=== PATIENT | male | born 1970 ===

== ENCOUNTER 2018-07-09 20:58 | Inpatient (IN) | payer MEDICARE, MEDICAID ==
--- NOTE | 2018-07-09 22:17 | C.PDOC ---
History Of Present Illness 47 y/o male with a PMHx of opioid abuse and left hip replacement, presents to the ED with withdrawal and requesting detox. Patient reports he is only withdrawing from opiates. Denies other substance abuse. He also states he has been hurting himself and hearing voices. Patient threw himself down the stairs today because he was having withdrawal. He now complains of right knee and right hip pain. Denies head trauma. Denies blood thinner use. Otherwise denies any nausea, vomiting, abdominal pain, tremors, or other associated symptoms. Time Seen by Provider: 07/09/18 22:17 Chief Complaint (Nursing): Substance Abuse History Per: Patient History/Exam Limitations: no limitations Onset/Duration Of Symptoms: Hrs Current Symptoms Are (Timing): Still Present Suicide/Self Injury Attempted (Context): Other (Threw self down stairs) Modifying Factor(s): Other (Heroin) Associated Symptoms: Depression, Suicidal Thoughts Past Medical History Reviewed: Historical Data, Nursing Documentation, Vital Signs Vital Signs: Last Vital Signs Temp 98.5 F 07/10/18 01:02 Pulse 76 07/10/18 01:02 Resp 18 07/10/18 01:02 BP 122/69 07/10/18 01:02 Pulse Ox 98 07/10/18 01:02 - Medical History PMH: Asthma, Bipolar Disorder, Bronchitis, CHF, COPD, Depression, Emphysema, Schizophrenia Other Surgeries: Left hip replacement Family History: States: No Known Family Hx - Social History Hx Tobacco Use: Yes Hx Alcohol Use: Yes Hx Substance Use: Yes - Immunization History Hx Tetanus Toxoid Vaccination: No Hx Influenza Vaccination: No Hx Pneumococcal Vaccination: No Review Of Systems Eyes: Negative for: Vision Change Cardiovascular: Negative for: Chest Pain, Palpitations Respiratory: Negative for: Shortness of Breath Gastrointestinal: Negative for: Nausea, Vomiting, Abdominal Pain Musculoskeletal: Positive for: Leg Pain (right hip and right knee). Negative for: Other (tremor) Neurological: Negative for: Weakness, Numbness, Dizziness Psych: Positive for: Depression, Suicidal ideation, Withdrawal (from heroin) Physical Exam - Physical Exam Appears: Non-toxic, No Acute Distress Skin: Normal Color, Warm, Dry Head: Atraumatic, Normacephalic Eye(s): bilateral: Normal Inspection, PERRL, EOMI Neck: Normal ROM Chest: Symmetrical Cardiovascular: Rhythm Regular, No Murmur Respiratory: Normal Breath Sounds, No Rales, No Rhonchi, No Wheezing Gastrointestinal/Abdominal: Soft, No Tenderness, No Distention Back: Normal Inspection, No Vertebral Tenderness, No Paraspinal Tenderness Extremity: Normal ROM, Tenderness (mild tenderness to right hip on palpation, non-tender right knee), Capillary Refill (less than 2 sec), No Deformity, Other (Good neurovascular status to distal lower extremities) Extremity: Left: Atraumatic, Right: Atraumatic Pulses: Left Dorsalis Pedis: Normal, Right Dorsalis Pedis: Normal Neurological/Psych: Oriented x3, Normal Speech ED Course And Treatment - Laboratory Results Result Diagrams: 07/09/18 23:02 07/09/18 23:02 O2 Sat by Pulse Oximetry: 99 (room air) Pulse Ox Interpretation: Normal - Other Rad x-ray right hip X-Ray: Interpreted by Me, Viewed By Me Interpretation: No acute fracture or dislocation x-ray right knee X-Ray: Interpreted by Me, Viewed By Me Interpretation: No acute fracture or dislocation Medical Decision Making Medical Decision Making: Impression: 47 y/o male with right hip pain, right knee pain, opioid withdrawal , and suicidal ideation. Pt notes that he is here for detox. He notes slipping down 1 or 2 steps today onto his left hip, without head impact. Neck clear via Nexus No Head impact Non tender on my exam, N/V intact in all extremities. Given well appearance, stable vitals, as well as normal appeance will order Xray for R knee and R hip Initial Plan: --CMP --UDS --Alcohol serum --Acetaminophen --Salicylate --CBC --UA --Right hip x-ray --Right knee x-ray --Pending crisis evaluation 0031 Medically clear. Xray read by myself: unremarkable. Case discussed with steam table worker, patient accepted for psychiatric admission under Dr. Blancas for opiate abuse, heroin abuse, and schizoaffective disorder. Disposition Counseled Patient/Family Regarding: Studies Performed, Diagnosis - Disposition Disposition: HOSPITALIZED Disposition Time: 00:31 Condition: STABLE - Clinical Impression Clinical Impression: Drug abuse - Scribe Statement The provider has reviewed the documentation as recorded by the Rick Leonard Provider Attestation: All medical record entries made by the Scribe were at my direction and personally dictated by me. I have reviewed the chart and agree that the record accurately reflects my personal performance of the history, physical exam, medical decision making, and the department course for this patient. I have also personally directed, reviewed, and agree with the discharge instructions and disposition.
[2018-07-09 23:07] LABS: BASO % 0.2 % (0.0-2.0); EOS # 0.2 K/uL (0.0-0.7); EOS % 3.8 % (0.0-4.0); HEMOGLOBIN 11.3 g/dL (12.0-18.0); LYMPH # 1.5 K/uL (1.0-4.3); LYMPH % 24.8 % (20.0-40.0); MEAN CELL VOLUME 85.3 fL (80.0-94.0); MEAN PLATELET VOLUME 8.2 fL (7.2-11.7); MONO # 0.6 K/uL (0.0-0.8); MONO % 9.6 % (0.0-10.0); NEUT # 3.6 K/uL (1.8-7.0); NEUT % 61.6 % (50.0-75.0); RBC 3.89 Mil/uL (4.40-5.90); RED CELL DISTRIBUTION WIDTH 14.7 % (11.5-14.5); WHITE BLOOD COUNT 5.9 K/uL (4.8-10.8)
[2018-07-09 23:11] LABS: SQUAMOUS EPITHIAL < 1 /hpf (0-5); URINE BACTERIA RARE (<OCC); URINE BILIRUBIN NEGATIVE (NEGATIVE); URINE BLOOD NEGATIVE (NEGATIVE); URINE CLARITY Clear (Clear); URINE COLOR Yellow (YELLOW); URINE GLUCOSE (UA) NORMAL (Normal); URINE LEUKOCYTE ESTERASE NEG Leu/uL (Negative); URINE PROTEIN NEGATIVE (NEGATIVE)
[2018-07-09 23:18] LABS: ALB/GLOB RATIO 0.9 (1.0-2.1); ALBUMIN 3.5 g/dL (3.5-5.0); ALT/SGPT 15 U/L (21-72); AST/SGOT 18 U/L (17-59); BLOOD UREA NITROGEN 9 mg/dL (9-20); CALCIUM 8.2 mg/dl (8.6-10.4); GFR NON-AFRICAN AMERICAN > 60
[2018-07-09 23:19] LABS: ACETAMINOPHEN < 10.0 ug/mL (10.0-30.0); SALICYLATE < 1.0 mg/dL 1
[2018-07-09 23:24] LABS: BARBITURATES, UR NEGATIVE (NEGATIVE); BENZODIAZEPINES, UR NEGATIVE (NEGATIVE); PHENCYCLIDINE, UR NEGATIVE (NEGATIVE)
[2018-07-09 23:28] LABS: OPIATES, UR POSITIVE (NEGATIVE)
[2018-07-10 01:18] VITALS: O2SAT 99
--- NOTE | 2018-07-10 01:40 | PCM.BM ---
Treatment Plan Problems - Problems identified on initial assessmt DEPRESSION Date Initiated: 07/10/18 Time Initiated: :15 Assessment reference: NA Status: Active SUBSTANCE ABUSE Date Initiated: 07/10/18 Time Initiated: 15 Assessment reference: NA Status: Active Treatment assets and liabiliti Patient Assests: cooperative, self-reliant, good support system, negotiates basic needs Patient Liabilities: physical pain, financial problems, substance abuse, medical problems - Milieu Protocol Maintain good personal hygiene: daily Encourage regular showers, daily Remind patient to perform daily oral care, daily Assist patient to perform ADL's Maintain personal safety: every shift Educate patient to report safety concerns to staff, every shift Monitor environment for contraband/sharps Medication safety: Monitor for expected outcome, potential side effects: every shift, Assess barriers to learning: every shift, Assess readiness for medication education: every shift
--- NOTE | 2018-07-10 08:45 | RAD ---
PROCEDURE: Right Hip Radiographs. HISTORY: Right hip pain COMPARISON: None. FINDINGS: BONES: The pelvic ring is intact. There is no acute displaced fracture or bone destruction. JOINTS: Status post left hip arthroplasty and internal fixation of left trochanteric fracture. There is avascular necrosis in the right femoral head with severe degenerative osteoarthrosis in the right hip joint with complete loss of joint space, subarticular sclerosis and cystic changes, marginal osteophytes and lateral displacement of the humeral head. A bone graft is identified in the right femoral head. SOFT TISSUES: Normal. OTHER FINDINGS: None. IMPRESSION: Avascular necrosis of the right femoral head and superimposed severe degenerative osteoarthrosis with lateral displacement of the femoral head. Status post graft in the right femoral head. Status post left hip arthroplasty and internal fixation of left trochanteric fracture.
--- NOTE | 2018-07-10 08:46 | RAD ---
Date of service: 07/09/2018 PROCEDURE: Right Knee Radiographs. HISTORY: r knee pain COMPARISON: None. FINDINGS: BONES: Bone alignment and mineralization are normal. There is no acute displaced fracture or bone destruction. JOINTS: There is moderate tricompartmental degenerative osteoarthrosis with reduced joint spaces, marginal osteophytes and tibial spiking, worse in the lateral compartment. JOINT EFFUSION: None. OTHER FINDINGS: None. IMPRESSION: There is m moderate tricompartmental degenerative osteoarthrosis with reduced joint spaces, marginal osteophytes and tibial spiking, worse in the lateral compartment.
--- NOTE | 2018-07-10 09:55 | PCM.PSYCH ---
Initial Psychiatric Evaluation - Initial Psychiatric Evaluation Type of Admission: Voluntary Legal Status: Capacity Chief Complaint (in patient's own words): I tried to kill myself History of Present Illness and Precipitating Events: Pt is a 47 year old male who currently lives with his mother in a house. pt does not have a or any kids. Pt presents to the [facility] yesterday because of auditory hallucinations. pt states the voices sound like "a monster" and that the voices told him to " hurt myself and to hurt my mom" but denies plan. pt has a hx of bipolar and schizophrenia but "was tired of taking the medication". Pt reported he used 20 bags of heroin IV, 1 gram of cocaine (snorted), 4mg Xanax and drinking alcohol ( 1.5 case of beer) 6 hours before arriving to the ER. pt states that he usually does 10 bags of heroin, 1 gram of cocaine per day, and smokes 1PPD. pt currently on 32mg of Suboxone daily and reported that he was at [facility] last year for detox. pt denies suicidal ideation, homicidal ideation, recent manic episode. pt was very tired in the room and was fell asleep multiple times during questioning but responsive and alert when awake. = Psych Hx: dx of Bipolar and schizophrenia 6 months ago. Medical Hx: "enlarged heart", COPD, asthma, chronic bone disease, withdrawal seizures Family hx: unremarkable Legal hx: unremarkable Current Medications: Active Medications Generic Name Dose Route Start Last Admin Trade Name Freq PRN Reason Stop Dose Admin Ibuprofen 600 mg 07/10/18 01:22 07/10/18 01:36 Motrin Tab PO 600 mg Q6 PRN Administration Pain, moderate (4-7) Pneumococcal Polyvalent Vaccine 0.5 ml 07/12/18 10:00 Pneumovax 23 Vaccine IM 07/12/18 10:01 .ONCE ONE Quetiapine Fumarate 100 mg 07/10/18 01:31 07/10/18 01:36 Seroquel PO 100 mg HS ALVARO Administration Past Psychiatric History - Past Psychiatric History Previous Treatment History: Inpatient Pertinent Medical Hx (Current Medical&Sleep Prob, Allergies): Allergies Allergy/AdvReac Type Severity Reaction Status Date / Time No Known Allergies Allergy Verified 07/09/18 21:14 No Known Home Med 07/09/18 Review of Systems - Review of Systems All systems: reviewed and no additional remarkable complaints except - Psychiatric Psychiatric: Anxiety, Auditory Hallucinations, Depression, Suicidal Ideation. absent: Homicidal Ideation, Panic Attacks, Visual Hallucinations Mental Status Examination - Personal Presentation Personal Presentation: Looks older than stated age - Affect Affect: Constricted, Other Additional comments: pt falling asleep - Motor Activity Motor Activity: Calm - Reliability in Providing Information Reliability in Providing Information: Poor, due to alteration in thoughts, Poor , due to altered mood - Speech Speech: Relevant - Mood Mood: Anxious - Formal Thought Process Formal Thought Process: Hallucinations, Delusions - Hallucinations/Delusions Hallucinations: Auditory Delusions: Persecution - Obsessions/Compulsions Obsessions: No Compulsions: No - Cognitive Functions Orientation: Person, Place, Situation, Time Sensorium: Drowsy Attention/Concentration: Attentive Abstract Thinking: [place] Estimate of Intelligence: Below average Judgement: Imparied, as evidence by: Poor judgement, Imparied, as evidence by: Lack of insight into illness - Risk Risk: Suicidal, Withdrawal, Diminished functioning - Limitations Limitations: Living alone DSM 5 DX - DSM 5 DSM 5 Diagnosis: Bipolar Disorder mixed severe with psychotic features Opioid use disorder, moderate Opioid Withdrawal Cocaine use disorder severe - Recommended/Plan of Treatment Treatment Recommendations and Plan of Treatment: Bipolar Disorder mixed severe with psychotic features Opioid use disorder, moderate Opioid Withdrawal Cocaine use disorder severe Methadone for withdrawal As need medications All risks, benefits and alternatives of meds discussed and pt agreed and understood attend groups and activities Individual therapy daily Psycho education and support daily Refer to outpatient program Teach healthy lifestyle methods, i.e Diet, exercise, meditation Smoking cessation and patch if needed
--- NOTE | 2018-07-11 15:33 | PCM.PYCHPN ---
Psychiatric Progress Note - Psychiatric Progress Note Patient seen today, length of contact: 15mins Patient Chief Complaint: "I feel better" Problems Identified/Issues Discussed: The pt is seen, chart reviewed, case discussed with staff pt had a good night sleep. pt complains withdrawl symptoms such as of abdominal pain and sweating due to withdrawl. pt denies visual, auditory hallucinations. pt is complained with medications and reports no side effects pt to attend groups and activities. support given, psycho-education provided. after care discussed with SW. Medication Change: Yes Medical Record Reviewed: Yes Mental Status Examination - Cognitive Function Orientation: Person, Place, Situation, Time Memory: Intact Attention: Poor Concentration: WNL Association: WNL Fund of Knowledge: WNL - Mood Mood: Anxious - Affect Affect: Other - Speech Speech: Pressured - Formal Thought Process Formal Thought Process: Hallucinations - Suicidal Ideation Suicidal Ideation: No - Homicidal Ideation Homicidal Ideation: No Goal/Treatment Plan - Goal/Treatment Plan Need for Continued Stay: Remain at risks for inpatient hospitalization, Discharge may exacerbated symptoms Progress Toward Problem(s) and Goals/Treatment Plan: Seroquel for schizophrenia Methadone for Withdrawal As need medications All risks, benefits and alternatives of meds discussed and pt agreed and understood attend groups and activities Individual therapy daily Psycho education and support daily Refer to outpatient program Teach healthy lifestyle methods, i.e Diet, exercise, meditation Smoking cessation and patch if needed
[2018-07-12] MEDS ORDERED: Pneumococcal 23-Valent Vaccine IM ONE (10:00)
[2018-07-13 06:34] VITALS: BP 125/81; PULSE 56; RESP 20; TEMP 97.6
--- NOTE | 2018-07-13 13:39 | PCM.PYCHDC ---
Mental Status Examination - Mental Status Examination Orientation: Person, Place, Situation, Time Memory: Intact Mood: Neutral Affect: Constricted Speech: Soft Attention: WNL Concentration: WNL Association: WNL Fund of Knowledge: WNL Formal Thought Process: No Impairment Description of patient's judgement and insight: good, fair Psychotic Thoughts and Behaviors: denies any AVH Suicidal Ideation: No Current Homicidal Ideation?: No Discharge Summary - Discharge Note Reason for Hospitalization: Pt is a 47 year old male who currently lives with his mother in a house. pt does not have a or any kids. Pt presents to the [facility] yesterday because of auditory hallucinations. pt states the voices sound like "a monster" and that the voices told him to " hurt myself and to hurt my mom" but denies plan. pt has a hx of bipolar and schizophrenia but "was tired of taking the medication". Pt reported he used 20 bags of heroin IV, 1 gram of cocaine (snorted), 4mg Xanax and drinking alcohol ( 1.5 case of beer) 6 hours before arriving to the ER. pt states that he usually does 10 bags of heroin, 1 gram of cocaine per day, and smokes 1PPD. pt currently on 32mg of Suboxone daily and reported that he was at [facility] last year for detox. pt denies suicidal ideation, homicidal ideation, recent manic episode. pt was very tired in the room and was fell asleep multiple times during questioning but responsive and alert when awake. = Psych Hx: dx of Bipolar and schizophrenia 6 months ago. Medical Hx: "enlarged heart", COPD, asthma, chronic bone disease, withdrawal seizures Family hx: unremarkable Legal hx: unremarkable Consultations:: List each consultation separately and include: 1. Reason for request. 2. Findings. 3. Follow-up Summary of Hospital Course include:: 1. Description of specific treatment plan utilized for patients during their course of treatmen. 2. Summarize the time- course for resolution of acute symptoms and/or regressed behaviors. 3. Describe issues identified and worked on during hospitalization. 4. Describe medication utilized. 5. Describe medical problems identified and treated. 6. Reassessment of suicide risk Summary of Hospital Course: Pt is a 47 year old male who currently lives with his mother in a house. pt does not have a or any kids. Pt presents to the [facility] yesterday because of auditory hallucinations. pt states the voices sound like "a monster" and that the voices told him to " hurt myself and to hurt my mom" but denies plan. pt has a hx of bipolar and schizophrenia but "was tired of taking the medication". Pt reported he used 20 bags of heroin IV, 1 gram of cocaine (snorted), 4mg Xanax and drinking alcohol ( 1.5 case of beer) 6 hours before arriving to the ER. pt states that he usually does 10 bags of heroin, 1 gram of cocaine per day, and smokes 1PPD. pt currently on 32mg of Suboxone daily and reported that he was at [facility] last year for detox. pt denies suicidal ideation, homicidal ideation, recent manic episode. pt was very tired in the room and was fell asleep multiple times during questioning but responsive and alert when awake. = Psych Hx: dx of Bipolar and schizophrenia 6 months ago. Medical Hx: "enlarged heart", COPD, asthma, chronic bone disease, withdrawal seizures Family hx: unremarkable Legal hx: unremarkable - Final Diagnosis (DSM 5) Condition upon Discharge: STABLE Disposition: HOME/ ROUTINE Follow-up Treatment Plan: Seroquel for schizophrenia Methadone for Withdrawal As need medications All risks, benefits and alternatives of meds discussed and pt agreed and understood attend groups and activities Individual therapy daily Psycho education and support daily Refer to outpatient program Teach healthy lifestyle methods, i.e Diet, exercise, meditation Smoking cessation and patch if needed Prescriptions/Medication Reconciliation: Gabapentin [Neurontin] 300 mg PO BID #60 cap QUEtiapine [Seroquel] 100 mg PO HS #30 tab
== END 2018-07-13 14:03 | disposition home or self-care (01) | DRG 885 ==
LOC: C.ER 20:58 → C.5E 07-10 00:55
PROC: HZ2ZZZZ Detoxification Services for Substance Abuse Treatment (ICD-10-PCS; principal; 2018-07-10)
PROC: HZ52ZZZ Individual Psychotherapy for Substance Abuse Treatment, Cognitive-Behavioral (ICD-10-PCS; 2018-07-10)
PROC: HZ59ZZZ Individual Psychotherapy for Substance Abuse Treatment, Supportive (ICD-10-PCS; 2018-07-10)
PROC: HZ56ZZZ Individual Psychotherapy for Substance Abuse Treatment, Psychoeducation (ICD-10-PCS; 2018-07-10)
PROC: HZ42ZZZ Group Counseling for Substance Abuse Treatment, Cognitive-Behavioral (ICD-10-PCS; 2018-07-10)
PROC: HZ46ZZZ Group Counseling for Substance Abuse Treatment, Psychoeducation (ICD-10-PCS; 2018-07-10)
PROC: GZHZZZZ Group Psychotherapy (ICD-10-PCS; 2018-07-10)
PROC: GZ58ZZZ Individual Psychotherapy, Cognitive-Behavioral (ICD-10-PCS; 2018-07-10)
PROC: GZ56ZZZ Individual Psychotherapy, Supportive (ICD-10-PCS; 2018-07-10)
DX: F31.64 Bipolar disorder, current episode mixed, severe, with psychotic features (principal); F11.23 Opioid dependence with withdrawal; F14.20 Cocaine dependence, uncomplicated; R45.851 Suicidal ideations; F17.210 Nicotine dependence, cigarettes, uncomplicated; I50.9 Heart failure, unspecified; J44.9 Chronic obstructive pulmonary disease, unspecified; Z96.642 Presence of left artificial hip joint; F41.9 Anxiety disorder, unspecified

== ENCOUNTER → 2018-12-24 16:16 | Emergency (ER) | payer MEDICAID, MEDICARE | END | disposition left against medical advice (07) | LOC: C.ER 16:16 | DX: Z02.89 Encounter for other administrative examinations (principal); F19.10 Other psychoactive substance abuse, uncomplicated ==

== ENCOUNTER 2018-12-25 13:52 | Inpatient (IN) | payer MEDICARE ==
[2018-12-25 14:08] VITALS: BMI 32.1
--- NOTE | 2018-12-25 14:23 | C.PDOC ---
History Of Present Illness 48 y/o male with PMH of heroin abuse presents to the ED for detox and c/o a right arm abscess x 2 days. States he has developed worsening pain and swelling to his medial right dorsal forearm, with associated central fluctuant mass. Last heroin use yesterday, 20 bags IV. Pt was prescreened for detox. Pt has no other physical complaints. Denies fever, chills, nausea, vomiting, chest pain, SOB, numbness, weakness, paresthesias, or any other associated complaints. Time Seen by Provider: 12/25/18 13:58 Chief Complaint (Nursing): Substance Abuse History Per: Patient History/Exam Limitations: no limitations Onset/Duration Of Symptoms: Days Current Symptoms Are (Timing): Still Present Past Medical History Reviewed: Historical Data, Nursing Documentation, Vital Signs Vital Signs: Last Vital Signs Temp 98.3 F 12/25/18 14:08 Pulse 62 12/25/18 14:08 Resp 18 12/25/18 14:08 BP 144/90 12/25/18 14:08 Pulse Ox 100 12/25/18 14:08 - Medical History PMH: Asthma, Bipolar Disorder, Bronchitis, CHF (denies), COPD, Depression, E mphysema, Schizophrenia, Seizures (last seizure was last year) Denies: Diabetes, Hepatitis, HIV, HTN, Sexually Transmitted Disease - [facility] Procedures DETOXIFICATION SERVICES FOR SUBSTANCE ABUSE TREATMENT (07/10/18) GROUP PRODUCTION ADMINISTRATOR FOR SUBSTANCE ABUSE TREATMENT, PSYCHOEDUCATION (07/10/18) GROUP PRODUCTION ADMINISTRATOR FOR SUBSTANCE ABUSE, COGNITIVE BEHAVIORAL (07/10/18) GROUP PSYCHOTHERAPY (07/10/18) INDIV PSYCHOTHERAPY FOR SUBSTANCE ABUSE TREATMENT, SUPPORT (07/10/18) INDIV PSYCHOTHERAPY FOR SUBSTANCE ABUSE, COGNITIV BEHAVIORAL (07/10/18) INDIV PSYCHOTHERAPY FOR SUBSTANCE ABUSE, PSYCHOEDUCATION (07/10/18) INDIVIDUAL PSYCHOTHERAPY, COGNITIVE-BEHAVIORAL (07/10/18) INDIVIDUAL PSYCHOTHERAPY, SUPPORTIVE (07/10/18) Family History: States: No Known Family Hx - Social History Hx Tobacco Use: Yes Hx Alcohol Use: Yes (12 beers daily) Hx Substance Use: Yes - Immunization History Hx Tetanus Toxoid Vaccination: No Hx Influenza Vaccination: Yes Hx Pneumococcal Vaccination: No Review Of Systems Except As Marked, All Systems Reviewed And Found Negative. Constitutional: Negative for: Fever, Chills Cardiovascular: Negative for: Chest Pain, Palpitations Respiratory: Negative for: Shortness of Breath Gastrointestinal: Negative for: Nausea, Vomiting, Diarrhea Musculoskeletal: Positive for: Arm Pain Skin: Positive for: Other (abscess to right forearm) Neurological: Negative for: Weakness, Numbness Psych: Positive for: Other (IV heroin abuse). Negative for: Suicidal ideation Physical Exam - Physical Exam Appears: Non-toxic, No Acute Distress, Unkempt Skin: Warm, Dry Head: Atraumatic, Normacephalic Eye(s): bilateral: Normal Inspection, PERRL, EOMI Oral Mucosa: Moist Neck: Normal ROM, Supple Chest: Symmetrical Cardiovascular: Rhythm Regular, No Murmur Respiratory: Normal Breath Sounds, No Rales, No Rhonchi, No Wheezing Gastrointestinal/Abdominal: Soft, No Tenderness, No Distention Extremity: No Normal ROM (unable to fully extend right elbow), Capillary Refill (< 2 sec), No Deformity, Swelling (Area of erythema and warmth to the right medial proximal dorsal forearm, with a central fluctuant mass approximately 2 cm in diameter, + tender to palpation) Pulses: Left Radial: Normal, Right Radial: Normal Neurological/Psych: Oriented x3, Normal Speech, Normal Motor, Normal Sensation Gait: Steady ED Course And Treatment - Laboratory Results Result Diagrams: 12/25/18 15:59 12/25/18 15:59 O2 Sat by Pulse Oximetry: 100 (RA) Pulse Ox Interpretation: Normal - Other Rad R Elbow X-Ray X-Ray: Read By Radiologist Interpretation: Accession No. : [id number]. Patient Name / ID : MELISSA ELLSWORTH / [id number]. Exam Date : 12/25/2018 15:23:12 ( Approved ). Study Comment : Sex / Age : M / 48Y. Creator : Ysabel Granda MD. Dictator : Ysabel Granda MD. Shell Molding Roller Blast Operator : Manager Bar : Ysabel Granda MD. Approver2 : Report Date : 12/25/2018 15:55:55. My Comment : . Date of service: 12/25/2018. PROCEDURE: Radiographs of the right elbow. HISTORY: abscess. COMPARISON: No prior. FINDINGS: BONES: Bone alignment and mineralization are normal. There is no acute displaced fracture or bone destruction. There is a prominent spur/ligament calcification along the lateral epicondyle. JOINTS: Normal. No osteoarthritis. SOFT TISSUES: Normal. JOINT EFFUSION: None. OTHER FINDINGS: None. IMPRESSION: No acute fracture or bone destruction. R Forearm X-Ray X-Ray: Read By Radiologist Interpretation: Accession No. : [id number]. Patient Name / ID : MELISSA ELLSWORTH / [id number]. Exam Date : 12/25/2018 15:23:29 ( Approved ). Study Comment : Sex / Age : M / 48Y. Creator : Ysabel Granda MD. Dictator : Ysabel Granda MD. Shell Molding Roller Blast Operator : Manager Bar : Ysabel Granda MD. Approver2 : Report Date : 12/25/2018 15:57:58. My Comment : . PROCEDURE: Radiographs of the Right Forearm. HISTORY: abscess. COMPARISON: None available. TECHNIQUE: Frontal and lateral views obtained. FINDINGS: BONES: No acute displaced fracture or destructive lesion. Bone alignment and mineralization are normal. JOINT SPACES: Unremarkable. OTHER FINDINGS: There is a 7 mm linear radiopaque density in the ventral and radial soft tissues of the distal forearm. IMPRESSION: No radiographic evidence for osteomyelitis. 7 mm linear radio opaque foreign body in the ventral and radial soft tissues of the distal forearm. The final report is tagged to the PA review folder. Medical Decision Making Medical Decision Making: Impression: Pre-screen for detox, Right arm abscess Initial Plan: Labs ordered, including blood cultures. X-rays taken of right forearm and right elbow. Patient given 30 mg IV Toradol for pain control. 15:50 IV line placed by ED attending Dr. Passafaro in left volar thumb. Pt tolerated well without complication. Imaging reveals 7mm foreign body in the right forearm, possibly a needle. No signs of osteomyelitis. Labwork reviewed, unremarkable. no leukocytosis. Pt is afebrile. EKG shows no acute changes, rate 62 CXR shows no active disease Patient will need admission to medical floor secondary to right arm abscess for IV antibiotics and surgical consult. Psychiatry will be consulted for detox. 17:[address] Maritza Awad, accepts patient to medical service on med/surg floor and requests Dr. Grimes for surgery. Patient started on IV vanco and rocephin per admitting team request. 17:58 Dr. Grimes paged for consult. 18:30 Received call back from Dr. Grimes, he accepts case and requests patient be kept NPO after midnight. Also recommends adding Dr. Bergman for ID consult. Disposition Counseled Patient/Family Regarding: Studies Performed, Diagnosis - Disposition Disposition: HOSPITALIZED Disposition Time: 17:58 Condition: STABLE - Clinical Impression Clinical Impression: Right arm cellulitis, Abscess of right arm, Foreign body in right upper extre mity, Opiate abuse, continuous
--- NOTE | 2018-12-25 15:59 | RAD ---
Date of service: 12/25/2018 PROCEDURE: Radiographs of the right elbow. HISTORY: abscess COMPARISON: No prior. FINDINGS: BONES: Bone alignment and mineralization are normal. There is no acute displaced fracture or bone destruction. There is a prominent spur/ligament calcification along the lateral epicondyle. JOINTS: Normal. No osteoarthritis. SOFT TISSUES: Normal. JOINT EFFUSION: None. OTHER FINDINGS: None. IMPRESSION: No acute fracture or bone destruction.
--- NOTE | 2018-12-25 16:01 | RAD ---
PROCEDURE: Radiographs of the Right Forearm HISTORY: abscess COMPARISON: None available. TECHNIQUE: Frontal and lateral views obtained. FINDINGS: BONES: No acute displaced fracture or destructive lesion. Bone alignment and mineralization are normal. JOINT SPACES: Unremarkable. OTHER FINDINGS: There is a 7 mm linear radiopaque density in the ventral and radial soft tissues of the distal forearm. IMPRESSION: No radiographic evidence for osteomyelitis. 7 mm linear radio opaque foreign body in the ventral and radial soft tissues of the distal forearm. The final report is tagged to the PA review folder.
[2018-12-25 16:13] LABS: BASO % 0.3 % (0.0-2.0); EOS # 0.1 K/uL (0.0-0.7); EOS % 1.5 % (0.0-4.0); HEMOGLOBIN 12.6 g/dL (12.0-18.0); LYMPH # 1.6 K/uL (1.0-4.3); LYMPH % 21.6 % (20.0-40.0); MEAN CELL VOLUME 84.7 fL (80.0-94.0); MEAN CORPUSCULAR HEMOGLOBIN 27.7 pg (27.0-31.0); MEAN CORPUSCULAR HGB CONC 32.8 g/dL (33.0-37.0); MEAN PLATELET VOLUME 8.7 fL (7.2-11.7); MONO # 0.5 K/uL (0.0-0.8); MONO % 6.2 % (0.0-10.0); NEUT # 5.3 K/uL (1.8-7.0); NEUT % 70.4 % (50.0-75.0); RBC 4.53 Mil/uL (4.40-5.90); RED CELL DISTRIBUTION WIDTH 15.5 % (11.5-14.5); WHITE BLOOD COUNT 7.5 K/uL (4.8-10.8)
[2018-12-25 16:18] LABS: INR 1.3; PROTHROMBIN TIME 13.9 SECONDS (9.7-12.2)
[2018-12-25 16:27] LABS: ALBUMIN 3.8 g/dL (3.5-5.0); AST/SGOT 24 U/L (17-59); BLOOD UREA NITROGEN 9 mg/dL (9-20); CALCIUM 8.3 mg/dl (8.6-10.4); GFR NON-AFRICAN AMERICAN > 60
[2018-12-25] MEDS ORDERED: Sodium Chloride 0.9% 1,000 ML ONE (16:44)
[2018-12-25 16:46] LABS: ALT/SGPT < 6 U/L (21-72)
[2018-12-25] MEDS: Sodium Chloride 0.9% 1,000 ML IV SCH (16:47)
[2018-12-25 16:49] LABS: SQUAMOUS EPITHIAL 1 /hpf (0-5); URINE BACTERIA RARE (<OCC); URINE BILIRUBIN NEGATIVE (NEGATIVE); URINE BLOOD NEGATIVE (NEGATIVE); URINE CLARITY Clear (Clear); URINE COLOR Amber (YELLOW); URINE GLUCOSE (UA) NORMAL (Normal); URINE LEUKOCYTE ESTERASE NEG Leu/uL (Negative); URINE PROTEIN NEGATIVE (NEGATIVE)
[2018-12-25 16:52] LABS: ACETAMINOPHEN < 10.0 ug/mL (10.0-30.0); SALICYLATE < 1.0 mg/dL 1
[2018-12-25 16:58] LABS: BARBITURATES, UR NEGATIVE (NEGATIVE); BENZODIAZEPINES, UR NEGATIVE (NEGATIVE); PHENCYCLIDINE, UR NEGATIVE (NEGATIVE)
[2018-12-25 17:06] LABS: OPIATES, UR POSITIVE (NEGATIVE)
[2018-12-25] MEDS ORDERED: Piperacillin/Tazobact 3.375 gm 0 ML IVPB ONE (18:07)
[2018-12-25] MEDS ORDERED: Vancomycin 1 GM 1 GM/250 ML BAG IVPB ONE (18:56)
--- NOTE | 2018-12-25 20:19 | CP.PCM.PN ---
Subjective - Date & Time of Evaluation Date of Evaluation: 12/25/18 Time of Evaluation: 20:19 - Subjective Subjective: H&P dictated # [id number] Objective - Vital Signs/Intake and Output Vital Signs (last 24 hours): Temp Pulse Resp BP Pulse Ox 98.3 F 64 18 129/70 100 12/25/18 19:56 12/25/18 19:56 12/25/18 14:08 12/25/18 19:56 12/25/18 19:56 - Medications Medications: Current Medications Sodium Chloride (Sodium Chloride 0.9%) 1,000 mls @ 100 mls/hr IV .Q10H ALVARO Last Admin: 12/25/18 16:47 Dose: 100 mls/hr - Labs Labs: 12/25/18 15:59 12/25/18 15:59 PT 13.9 SECONDS (9.7-12.2) H 12/25/18 15:59 INR 1.3 12/25/18 15:59 APTT 28 SECONDS (21-34) 12/25/18 15:59
--- NOTE | 2018-12-25 22:33 | CP.PCM.CON ---
History of Present Illness - History of Present Illness History of Present Illness: 48 y/o male with PMH of heroin abuse presents to the ED for detox and c/o a right arm abscess x 2 days. States he has developed worsening pain and swelling to his medial right dorsal forearm, with associated central fluctuant mass. Last heroin use yesterday, 20 bags IV. Pt was prescreened for detox. Pt has no other physical complaints. - Medical History PMH: Asthma, Bipolar Disorder, Bronchitis, CHF (denies), COPD, Depression, Emphysema, Schizophrenia, Seizures (last seizure was last year) Denies: Diabetes, Hepatitis, HIV, HTN, Sexually Transmitted Disease - [facility] Procedures DETOXIFICATION SERVICES FOR SUBSTANCE ABUSE TREATMENT (07/10/18) GROUP MOLD MOVER FOR SUBSTANCE ABUSE TREATMENT, PSYCHOEDUCATION (07/10/18) GROUP MOLD MOVER FOR SUBSTANCE ABUSE, COGNITIVE BEHAVIORAL (07/10/18) GROUP PSYCHOTHERAPY (07/10/18) INDIV PSYCHOTHERAPY FOR SUBSTANCE ABUSE TREATMENT, SUPPORT (07/10/18) INDIV PSYCHOTHERAPY FOR SUBSTANCE ABUSE, COGNITIV BEHAVIORAL (07/10/18) INDIV PSYCHOTHERAPY FOR SUBSTANCE ABUSE, PSYCHOEDUCATION (07/10/18) INDIVIDUAL PSYCHOTHERAPY, COGNITIVE-BEHAVIORAL (07/10/18) INDIVIDUAL PSYCHOTHERAPY, SUPPORTIVE (07/10/18) Review of Systems - Review of Systems All systems: reviewed and no additional remarkable complaints except - Constitutional Constitutional: As Per HPI - EENT Eyes: absent: As Per HPI, Blind Spots, Blurred Vision, Change in Vision, Decreased Night Vision, Diplopia, Discharge, Dry Eye, Exophthalmos, Floaters, Irritation, Itchy Eyes, Loss of Peripheral Vision, Pain, Photophobia, Requires Corrective Lenses, Sees Flashes, Spots in Vision, Tunnel Vision, Other Visual Disturbances, Loss of Vision, Other Ears: absent: As Per HPI, Decreased Hearing, Ear Discharge, Ear Pain, Tinnitus, Abnormal Hearing, Disequilibrium, Dizziness, Other Nose/Mouth/Throat: absent: As Per HPI, Epistaxis, Nasal Congestion, Nasal Discharge, Nasal Obstruction, Nasal Trauma, Nose Pain, Post Nasal Drip, Sinus Pain, Sinus Pressure, Bleeding Gums, Change in Voice, Dental Pain, Dry Mouth, Dysphagia, Halitosis, Hoarsness, Lip Swelling, Mouth Lesions, Mouth Pain, Odynophagia, Sore Throat, Throat Swelling, Tongue Swelling, Facial Pain, Neck Pain, Neck Mass, Other - Cardiovascular Cardiovascular: absent: As Per HPI, Acrocyanosis, Chest Pain, Chest Pain at Rest, Chest Pain with Activity, Claudication, Diaphoresis, Dyspnea, Dyspnea on Exertion, Edema, Irregular Heart Rhythm, Pain Radiating to Arm/Neck/Jaw, Leg Edema, Leg Ulcers, Lightheadedness, Orthopnea, Palpitations, Paroxysmal Nocturnal Dyspnea, Pedal Edema, Radiating Pain, Rapid Heart Rate, Slow Heart Rate, Syncope, Other - Respiratory Respiratory: absent: As Per HPI, Cough, Dyspnea, Hemoptysis, Dyspnea on Exertion, Wheezing, Snoring, Stridor, Pain on Inspiration, Chest Congestion, Excessive Mucous Production, Change in Mucous Color, Pain with Coughing, Other - Gastrointestinal Gastrointestinal: absent: As Per HPI, Abdominal Pain, Belching, Bloating, Change in Bowel Habits, Change in Stool Character, Coffee Ground Emesis, Constipation, Cramping, Diarrhea, Dyspepsia, Dysphagia, Early Satiety, Excessive Flatus, Fecal Incontinence, Heartburn, Hematemesis, Hematochezia, Loose Stools, Melena, Nausea, Odynophagia, Temesmus, Vomiting, Other - Musculoskeletal Musculoskeletal: As Per HPI - Integumentary Integumentary: As Per HPI, Skin Pain, Wounds Past Patient History - Past Social History Smoking Status: Heavy Smoker > 10 Cigarettes Daily - CARDIAC Hx Congestive Heart Failure: Yes (denies) Hx Hypertension: No - PULMONARY Hx Asthma: Yes Hx Bronchitis: Yes Hx Chronic Obstructive Pulmonary Disease (COPD): Yes Hx Emphysema: Yes - NEUROLOGICAL Hx Seizures: Yes (last seizure was last year) - HEMATOLOGICAL/ONCOLOGICAL Hx Human Immunodeficiency Virus (HIV): No - GENITOURINARY/GYNECOLOGICAL Hx Sexually Transmitted Disorders: No - PSYCHIATRIC Hx Bipolar Disorder: Yes Hx Depression: Yes Hx Schizophrenia: Yes Hx Substance Use: Yes - SURGICAL HISTORY Other/Comment: Left hip surgery - ANESTHESIA Hx Anesthesia: Yes Hx Anesthesia Reactions: No Meds Allergies/Adverse Reactions: Allergies Allergy/AdvReac Type Severity Reaction Status Date / Time No Known Allergies Allergy Verified 12/25/18 14:07 - Medications Medications: Current Medications Sodium Chloride (Sodium Chloride 0.9%) 1,000 mls @ 100 mls/hr IV .Q10H ALVARO Last Admin: 12/25/18 16:47 Dose: 100 mls/hr Physical Exam - Constitutional Appears: No Acute Distress, Chronically Ill - Head Exam Head Exam: NORMOCEPHALIC - Eye Exam Eye Exam: absent: Scleral icterus - ENT Exam ENT Exam: Mucous Membranes Dry - Neck Exam Neck exam: Negative for: Lymphadenopathy - Respiratory Exam Respiratory Exam: Decreased Breath Sounds, Prolonged Expiratory Phase, Rhonchi - Cardiovascular Exam Cardiovascular Exam: REGULAR RHYTHM, +S1, +S2 - GI/Abdominal Exam GI & Abdominal Exam: Diminished Bowel Sounds, Soft. absent: Tenderness - Rectal Exam Rectal Exam: Deferred - Exam Exam: NORMAL INSPECTION - Extremities Exam Extremities exam: Negative for: pedal edema Additional comments: swelling right arm pain redness warmth - Back Exam Back exam: absent: CVA tenderness (L), CVA tenderness (R) - Neurological Exam Neurological exam: Alert, CN II-XII Intact, Oriented x3, Reflexes Normal - Psychiatric Exam Psychiatric exam: Normal Mood - Skin Skin Exam: Dry, Intact Results - Vital Signs Recent Vital Signs: Last Vital Signs Temp 98.3 F 12/25/18 19:56 Pulse 64 12/25/18 19:56 Resp 18 12/25/18 14:08 BP 129/70 12/25/18 19:56 Pulse Ox 100 12/25/18 20:29 - Labs Result Diagrams: 12/25/18 15:59 12/25/18 15:59 Labs: Laboratory Results - last 24 hr 12/25/18 12/25/18 12/25/18 15:59 15:59 15:59 WBC 7.5 RBC 4.53 Hgb 12.6 Hct 38.4 MCV 84.7 MCH 27.7 MCHC 32.8 L RDW 15.5 H Plt Count 168 MPV 8.7 Neut % (Auto) 70.4 Lymph % (Auto) 21.6 [place] % (Auto) 6.2 Eos % (Auto) 1.5 Baso % (Auto) 0.3 Neut # (Auto) 5.3 Lymph # (Auto) 1.6 [place] # (Auto) 0.5 Eos # (Auto) 0.1 Baso # (Auto) 0.0 PT 13.9 H INR 1.3 APTT 28 Sodium 135 Potassium 4.1 Chloride 104 Carbon Dioxide 23 Anion Gap 12 BUN 9 Creatinine 0.5 L Est GFR ( Amer) > 60 Est GFR (Non-Af Amer) > 60 Random Glucose 92 Calcium 8.3 L Phosphorus 3.5 Magnesium 2.0 Total Bilirubin 0.6 AST 24 ALT < 6 L D Alkaline Phosphatase 127 H Total Protein 7.5 Albumin 3.8 Globulin 3.7 Albumin/Globulin Ratio 1.0 Urine Color Urine Clarity Urine pH Ur Specific [place] Urine Protein Urine Glucose (UA) Urine Ketones Urine Blood Urine Nitrate Urine Bilirubin Urine Urobilinogen Ur Leukocyte Esterase Urine WBC (Auto) Urine RBC (Auto) Ur Squamous Epith Cells Urine Bacteria Salicylates Urine Opiates Screen Urine Methadone Screen Acetaminophen Ur Barbiturates Screen Ur Phencyclidine Scrn Ur Amphetamines Screen U Benzodiazepines Scrn U Oth Cocaine Metabols U Cannabinoids Screen Alcohol, Quantitative < 10 12/25/18 12/25/18 12/25/18 16:27 16:27 16:30 WBC RBC Hgb Hct MCV MCH MCHC RDW Plt Count MPV Neut % (Auto) Lymph % (Auto) [place] % (Auto) Eos % (Auto) Baso % (Auto) Neut # (Auto) Lymph # (Auto) [place] # (Auto) Eos # (Auto) Baso # (Auto) PT INR APTT Sodium Potassium Chloride Carbon Dioxide Anion Gap BUN Creatinine Est GFR ( Amer) Est GFR (Non-Af Amer) Random Glucose Calcium Phosphorus Magnesium Total Bilirubin AST ALT Alkaline Phosphatase Total Protein Albumin Globulin Albumin/Globulin Ratio Urine Color Dot Urine Clarity Clear Urine pH 6.0 Ur Specific [place] 1.018 Urine Protein Negative Urine Glucose (UA) Normal Urine Ketones Negative Urine Blood Negative Urine Nitrate Negative Urine Bilirubin Negative Urine Urobilinogen 4.0 Ur Leukocyte Esterase Neg Urine WBC (Auto) < 1 Urine RBC (Auto) 1 Ur Squamous Epith Cells 1 Urine Bacteria Rare Salicylates < 1.0 Urine Opiates Screen Positive H Urine Methadone Screen Negative Acetaminophen < 10.0 L Ur Barbiturates Screen Negative Ur Phencyclidine Scrn Negative Ur Amphetamines Screen Negative U Benzodiazepines Scrn Negative U Oth Cocaine Metabols Positive H U Cannabinoids Screen Positive H Alcohol, Quantitative Assessment & Plan - Assessment and Plan (Free Text) Assessment: 48 y/o male with PMH of heroin abuse presents to the ED for detox and c/o a right arm abscess x 2 days. States he has developed worsening pain and swelling to his medial right dorsal forearm, with associated central fluctuant mass. Last heroin use yesterday, 20 bags IV. Pt was prescreened for detox. Pt has no other physical complaints. for OR in am IV antibiotics ordered
[2018-12-25] MEDS: Cefepime IV 1 gm in Dextrose 1 GM/50 ML BAG IVPB SCH (22:46)
--- NOTE | 2018-12-26 02:40 | HP ---
CHIEF COMPLAINT: The patient walked into the emergency room requesting for detox. HISTORY OF PRESENT ILLNESS: Mr. Pizano is a 48-year-old male with past medical history of bipolar disorder, asthma, COPD, drug abuse with cocaine and heroin, IVDA abuse, last use was last night who was recently admitted to the hospital in 07/2018 for bipolar disorder and drug detoxification. Came into the emergency room requesting for detox. He complains of right upper extremity abscess for the past two days. He claims that he used heroin for IVDA at that site last night, and he claims that he uses 10 bags of heroin everyday. He smoked cocaine, last use was yesterday. Also complaining of right upper extremity swelling and pain and not able to extend right elbow completely. Denies any headache. Denies any dizziness. Denies any chest pain, shortness of breath or wheezing. Denies any nausea, vomiting, abdominal pain, diarrhea or constipation. Denies any urinary complaints. Denies any leg pains or leg cramps. PAST MEDICAL HISTORY: As described, bipolar disorder, asthma, drug abuse. PAST SURGICAL HISTORY: He had left hip replacement. FAMILY HISTORY: Nothing contributory to the present illness. PERSONAL HISTORY: He is single. Not having any children. Disabled. He is living with his mother. SOCIAL HISTORY: Smokes 10 cigarettes per day for the past two years. Denies any alcohol abuse. Uses 10 bags of heroin through IVDA. He smokes cocaine everyday. ALLERGIES: NO KNOWN DRUG ALLERGIES. MEDICATIONS: He does not take any medications at home. REVIEW OF SYSTEMS: As described in history of present illness. All other systems reviewed and were found to be negative. PHYSICAL EXAMINATION: GENERAL: Middle-aged male, lying in bed, in no acute distress. VITAL SIGNS: Blood pressure 129/70, pulse 64, respirations 20, temperature 98.3 degrees Fahrenheit, O2 sat is 100% on room air. HEENT: Pupils equal, round, reacting to light and accommodation. Extraocular muscles intact. No icterus. No pallor. No oral thrush. No pharyngeal congestion. NECK: Supple. No JVD. LUNGS: Bilateral vesicular breath sounds. No wheezing. No rhonchi. CARDIOVASCULAR SYSTEM: S1 and S2 present, regular. ABDOMEN: Soft, nontender. Bowel sounds present. No guarding. No rigidity. No rebound tenderness noted. CENTRAL NERVOUS SYSTEM: Alert, awake, oriented x3. No focal deficits noted. EXTREMITIES: Right upper extremity: At the above region below the elbow joint, there is a 2 x 2 cm size fluctuant mass noted, tenderness present, erythema present, warm to touch, redness extending above the elbow joint, unable to extend the elbow completely. There is no discharge. LABORATORY DATA: Labs done from the emergency room: WBC 10.5, hemoglobin 12.6, hematocrit 38.4, platelets 168. PT 13.9, INR 1.3, PTT 28. Sodium 135, potassium 4.1, chloride 104, bicarb 23, BUN 9, creatinine 0.5, glucose 92, calcium 8.3, phosphorus 3.5, magnesium 2. Total bilirubin 0.6, AST 24, ALT less than 6, alkaline phosphatase 127, total protein 7.5, albumin 3.8. UA negative. Drug screen positive for opiates, cocaine and cannabinoids. Alcohol less than 10. Blood cultures sent from the emergency room. Chest x-ray negative for any infiltrate. Forearm x-ray consistent with 7-mm linear radiopaque foreign body in the ventral and radial soft tissues of the distal forearm. Elbow x-ray, no acute fracture or dislocation noted. EKG consistent with normal sinus rhythm at 62 beats per minute. No acute ST-T changes noted. ASSESSMENT AND PLAN: Middle-aged male with history of bipolar disorder, asthma, multiple drug abuse, recent admission to the hospital in 07/2018 for bipolar disorder and substance abuse. Came into the emergency room requesting for detox after using 10 bags of heroin intravenously and smoked cocaine yesterday. In the emergency room, the patient was found to be having right elbow abscess at the intravenous drug abuse site and the x-ray showed foreign body in the same arm. The patient is being admitted for further management. 1. Right upper extremity abscess in a patient with intravenous drug abuse history, last use was last night. Cellulitis of the right upper extremity. 2. Foreign body, questionable substance abuse with heroin, cocaine. 3. Smoking, current. 4. History of bipolar disorder, not on any medication. PLAN: The patient is being admitted to med-surg floor. The patient received vancomycin and Rocephin in the emergency room. We will continue with vancomycin 1 g IV every 12 hours and Rocephin 1 g daily. We will obtain ID consult. We will obtain surgical consult for possible I and D. Watch for drug withdrawal. We will obtain psychiatric evaluation. Needs guest services attendant for drug detox rehab. We will continue with pain medication as needed. I will check echocardiogram to rule out any vegetation. We will give normal saline at 100 mL an hour. Blood cultures were done from the emergency room. We will follow up with the culture results. We will add further recommendations as his clinical course progresses. Lorena Awad MD
[2018-12-26] MEDS: Vancomycin 1 gm/NS 200 ml 1 GM/200 ML BAG IVPB SCH ×2 (07:54→19:33)
--- NOTE | 2018-12-26 09:32 | CP.PCM.PN ---
Subjective - Date & Time of Evaluation Date of Evaluation: 12/26/18 Time of Evaluation: 09:32 - Subjective Subjective: Progress note dictated #[id number] Objective - Vital Signs/Intake and Output Vital Signs (last 24 hours): Temp Pulse Resp BP Pulse Ox 97.8 F 100 H 20 148/85 96 12/26/18 08:59 12/26/18 08:59 12/26/18 08:59 12/26/18 08:59 12/26/18 08:59 - Medications Medications: Current Medications Sodium Chloride (Sodium Chloride 0.9%) 1,000 mls @ 100 mls/hr IV .Q10H ALVARO Last Admin: 12/25/18 16:47 Dose: 100 mls/hr Vancomycin/Sodium Chloride (Vancomycin 1 Gm/Ns 200 Ml) 1 gm in 200 mls @ 133 mls/hr IVPB Q12H ALVARO; Protocol Stop: 12/31/18 07:01 Last Admin: 12/26/18 07:54 Dose: 133 mls/hr Cefepime HCl (Maxipime Iv 1 Gm Premix) 1 gm in 50 mls @ 100 mls/hr IVPB Q12H ALVARO; Protocol Last Admin: 12/25/18 22:46 Dose: 100 mls/hr - Labs Labs: 12/25/18 15:59 12/25/18 15:59 PT 13.9 SECONDS (9.7-12.2) H 12/25/18 15:59 INR 1.3 12/25/18 15:59 APTT 28 SECONDS (21-34) 12/25/18 15:59
[2018-12-26] MEDS: Enoxaparin 40 mg Syringe SC SCH (10:00)
[2018-12-26] MEDS: Cefepime IV 1 gm in Dextrose 1 GM/50 ML BAG IVPB SCH ×2 (10:00→22:25)
--- NOTE | 2018-12-26 11:14 | RAD ---
HISTORY: admission COMPARISON: None available. TECHNIQUE: Chest, one view. FINDINGS: LUNGS: Left lower lobe infiltrate/atelectasis. Mild right basilar atelectasis. Right paratracheal opacity may reflect tortuous vasculature exaggerated by patient obliquity; alternatives including adenopathy not excluded. Please note that chest x-ray has limited sensitivity for the detection of pulmonary masses. PLEURA: No significant pleural effusion identified. No definite pneumothorax . CARDIOVASCULAR: Heart size appears top normal. Atherosclerotic calcifications of the aorta. OSSEOUS STRUCTURES: Degenerative changes. VISUALIZED UPPER ABDOMEN: Unremarkable. OTHER FINDINGS: None. IMPRESSION: Left lower lobe infiltrate/atelectasis. Mild right basilar atelectasis. Right paratracheal opacity may reflect tortuous vasculature exaggerated by patient obliquity; alternatives including adenopathy not excluded.
--- NOTE | 2018-12-26 11:31 | PCM.PSYCH ---
Initial Psychiatric Evaluation - Initial Psychiatric Evaluation Type of Admission: Voluntary Legal Status: Capacity Chief Complaint (in patient's own words): "I'm withdrawing" History of Present Illness and Precipitating Events: The pt is seen, chart reviewed and case discussed He is a 48 y/o LM, single, no child, lives with his mother, unemployed on disability Consult was requested for his addiction The pt claims he has been given 4 suboxones a day (8 mg each - extremely high dose!) but he admits to not using "all the time" and using heroin on and off. He has used both 2 days ago and reports wdw sxs now: COWS is above 9 - and he was given one clonidine last night. Mechanical Inspector confirmed his suboxone rx from [facility] and explained risks, incl. precipitated withdrawal dn he agreed to resume. However, he will be given 3x/day and he is recommended to lower even further or consider methadone maintenance afetr d/c Denies other drugs now but was an "alcoholic and crack user 5-6 years ago but then switched to heroin. Using 10-12 bags of heroin iv x 3 years now OD'ed 2x No detox or rehab before Denies psych hx Medical; Asthma Family psych hx: Denies Current Medications: Active Medications Generic Name Dose Route Start Last Admin Trade Name Freq PRN Reason Stop Dose Admin Enoxaparin Sodium 40 mg 12/26/18 10:00 Lovenox SC DAILY [facility] Sodium Chloride 1,000 mls @ 100 mls/hr 12/25/18 16:45 12/25/18 16:47 Sodium Chloride 0.9% IV 100 mls/hr .Q10H [facility] Administration Vancomycin/Sodium Chloride 1 gm in 200 mls @ 133 mls/hr 12/26/18 07:00 12/26/18 07:54 Vancomycin 1 Gm/Ns 200 Ml IVPB 12/31/18 07:01 133 mls/hr Q12H [facility] Administration Protocol Cefepime HCl 1 gm in 50 mls @ 100 mls/hr 12/25/18 23:00 12/25/18 22:46 Maxipime Iv 1 Gm Premix IVPB 100 mls/hr Q12H [facility] Administration Protocol Past Psychiatric History - Past Psychiatric History Previous Treatment History: None Pertinent Medical Hx (Current Medical&Sleep Prob, Allergies): Allergies Allergy/AdvReac Type Severity Reaction Status Date / Time No Known Allergies Allergy Verified 12/25/18 14:07 No Known Home Med 12/25/18 Review of Systems - Psychiatric Psychiatric: Abnormal Sleep Pattern, Anxiety, Irritability. absent: Hallu cinations, Homicidal Ideation, Hopelessness, Paranoia, Suicidal Ideation Mental Status Examination - Personal Presentation Personal Presentation: Looks stated age - Affect Affect: Constricted - Motor Activity Motor Activity: Calm - Reliability in Providing Information Reliability in Providing Information: Fair - Speech Speech: Organized - Mood Mood: Anxious - Formal Thought Process Formal Thought Process: No Impairment - Cognitive Functions Orientation: Person, Place, Situation, Time Sensorium: Alert Attention/Concentration: Easily distracted Estimate of Intelligence: Average Judgement: Intact, as evidence by: Insight regarding need for hospitalization Memory: Recent intact, as evidence by: Ability to recall events of the day, Remote intact, as evidenced by: Abilit to recall sig. life events - Risk Risk: Withdrawal, Diminished functioning - Strength & Assets Inventory Strength & Assets Inventory: Cooperative - Limitations Limitations: Other DSM 5 DX - DSM 5 DSM 5 Diagnosis: Opioid withdrawal Opioid use d/o - severe Cocaine use d/o - in remission Alcohol use d/0 - in remission - Recommended/Plan of Treatment Treatment Recommendations and Plan of Treatment: Subutex 8 mg TID Support and psychoed Return to sbx docotr but consider other options too, incl/. vivitrol, methadone maint. 33 min
[2018-12-26] MEDS: Buprenorphine Hydrochloride 8 mg SL SCH ×2 (13:13→19:29)
--- NOTE | 2018-12-26 15:19 | PN ---
DATE: 12/26/2018 SUBJECTIVE: The patient is seen and examined at bedside. The patient was complaining of right upper extremity pain and claiming that he has been . Denies any other new complaints. PHYSICAL EXAMINATION GENERAL: Middle aged male, lying in bed in no acute distress. VITAL SIGNS: Blood pressure 148/85, pulse 100, respirations 20, temperature 97.8 degrees Fahrenheit, O2 saturations 96% on room air. HEENT: Pupils equal, round and reactive to light and accommodation. Extraocular muscles intact. No icterus, no pallor. No oral thrush. No pharyngeal congestion. NECK: Supple, no JVD. LUNGS: Bilateral vesicular breath sounds. No wheezing. No rhonchi. CVS: S1 and S2 present, regular. ABDOMEN: Soft and nontender. Bowel sounds are present. No guarding, no rigidity. No rebound tenderness noted. CENTRAL NERVOUS SYSTEM: Alert, awake, oriented x3. No focal deficits noted. EXTREMITIES: Right upper extremity with swelling below the elbow with erythema, redness and tenderness present in the partial flexion of the right upper extremity . MEDICATIONS: Include Maxipime 1 g IV every 12 hours, Lovenox 40 mg daily, IV fluids, normal saline at 100 mL/hour, vancomycin 1 g IV every 12 hours. ASSESSMENT AND PLAN: Middle-aged male with history of bipolar disorder, asthma, drug abuse, chronic obstructive pulmonary disease with multiple drugs, heroin, IVDA, and cocaine abuse, admitted requesting detox and found to have right upper extremity abscess with cellulitic changes at IVDA site with question of foreign body. ID consult appreciated. Will continue with current antibiotics. Follow up with Surgery for possible incision and drainage of the abscess today. Psychiatric consult requested. We will add further recommendations as his clinical course progresses. Lorena Awad MD
--- NOTE | 2018-12-26 16:28 | CARD ---
APPROVED REPORT Date of service: 12/26/2018 EXAM: Two-dimensional and M-mode echocardiogram with Doppler and color Doppler. INDICATION Congestive Heart Failure DRUG ABUSE RISK FACTORS Smoking 2D DIMENSIONS IVSd0.9 (0.7-1.1cm)LVDd5.5 (3.9-5.9cm) PWd1.0 (0.7-1.1cm)LA Knpaip54 (18-58mL) LVDs3.4 (2.5-4.0cm)FS (%) 38.4 % LVEF (%)68.1 (>50%)LVEF (Pearson's)64.08 % M-Mode DIMENSIONS Left Atrium (MM)3.74 (2.5-4.0cm)Aortic Root3.61 (2.2-3.7cm) Aortic Cusp Exc.2.28 (1.5-2.0cm) Mitral Valve MV E Nbzzluyj98.9cm/sMV A Onpwwaij73.6cm/sE/A ratio0.8 TDI Lateral E' Peak V9.48cm/sMedial E' Peak V5.64cm/sE/Lateral E'6.2 E/Medial E'10.4 LEFT VENTRICLE The left ventricle is normal size. There is normal left ventricular wall thickness. The left ventricular function is normal. The left ventricular ejection fraction is within the normal range. There is normal LV segmental wall motion. Transmitral Doppler flow pattern is normal for age. Normal left atrial pressure. RIGHT VENTRICLE The right ventricle is normal size. The right ventricular systolic function is normal. ATRIA The left atrium size is normal. The right atrium size is normal. AORTIC VALVE The aortic valve is normal in structure. No aortic regurgitation is present. There is no aortic valvular stenosis. MITRAL VALVE The mitral valve is normal in structure. There is no mitral valve regurgitation noted. TRICUSPID VALVE The tricuspid valve is normal in structure. There is no tricuspid valve regurgitation noted. PULMONIC VALVE The pulmonary valve is normal in structure. GREAT VESSELS The aortic root is normal in size. The IVC is normal in size and collapses >50% with inspiration. PERICARDIAL EFFUSION There is no pericardial effusion. <Conclusion> Normal bi-ventricular function No valvular abnormality. No pericardial effusion.
[2018-12-26] MEDS ORDERED: Lactated Ringer's 1,000 ML IV SCH (17:00)
[2018-12-26] MEDS ORDERED: Propofol 10 mg/ml Inj (20 ML) ONE (17:06)
[2018-12-26] MEDS: HYDROmorphone 0.5 mg/0.5 ml ISec IVP PRN ×4 (17:49→18:33)
--- NOTE | 2018-12-26 17:59 | CARD ---
APPROVED REPORT Date of service: 12/25/2018 EKG Measurement Heart [id number] <Conclusion> Normal sinus rhythm Normal ECG
--- NOTE | 2018-12-26 20:04 | CP.PCM.PN ---
Subjective - Date & Time of Evaluation Date of Evaluation: 12/26/18 Time of Evaluation: 09:00 - Subjective Subjective: seen in OR post op NAD asking for pain meds Objective - Vital Signs/Intake and Output Vital Signs (last 24 hours): Temp Pulse Resp BP Pulse Ox 98.0 F 76 18 125/68 98 12/26/18 19:25 12/26/18 19:25 12/26/18 19:25 12/26/18 19:25 12/26/18 19:25 Intake and Output: 12/26/18 12/27/18 18:59 06:59 Intake Total 600 Balance 600 - Medications Medications: Current Medications Buprenorphine HCl (Subutex) 8 mg SL TID [facility] Last Admin: 12/26/18 19:29 Dose: 8 mg Enoxaparin Sodium (Lovenox) 40 mg SC DAILY [facility] Last Admin: 12/26/18 10:00 Dose: 40 mg Sodium Chloride (Sodium Chloride 0.9%) 1,000 mls @ 100 mls/hr IV .Q10H [facility] Last Admin: 12/25/18 16:47 Dose: 100 mls/hr Vancomycin/Sodium Chloride (Vancomycin 1 Gm/Ns 200 Ml) 1 gm in 200 mls @ 133 mls/hr IVPB Q12H [facility]; Protocol Stop: 12/31/18 07:01 Last Admin: 12/26/18 19:33 Dose: 133 mls/hr Cefepime HCl (Maxipime Iv 1 Gm Premix) 1 gm in 50 mls @ 100 mls/hr IVPB Q12H [facility]; Protocol Last Admin: 12/26/18 10:00 Dose: 100 mls/hr Lactated Ringer's (Lactated Ringer's) 1,000 mls @ 100 mls/hr IV .Q10H [facility] Nicotine (Nicoderm Cq) 1 patch TD DAILY [facility] Last Admin: 12/26/18 14:56 Dose: 1 patch Trazodone HCl (Desyrel) 50 mg PO HS [facility] - Labs Labs: 12/25/18 15:59 12/25/18 15:59 PT 13.9 SECONDS (9.7-12.2) H 12/25/18 15:59 INR 1.3 12/25/18 15:59 APTT 28 SECONDS (21-34) 12/25/18 15:59 - Constitutional Appears: Non-toxic, Chronically Ill - Head Exam Head Exam: NORMOCEPHALIC - Eye Exam Eye Exam: absent: Scleral icterus - ENT Exam ENT Exam: Mucous Membranes Dry - Neck Exam Neck Exam: absent: Lymphadenopathy - Respiratory Exam Respiratory Exam: Decreased Breath Sounds - Cardiovascular Exam Cardiovascular Exam: REGULAR RHYTHM - GI/Abdominal Exam GI & Abdominal Exam: Distended, Soft - Rectal Exam Rectal Exam: Deferred - Exam Exam: NORMAL INSPECTION - Extremities Exam Extremities Exam: absent: Calf Tenderness, Pedal Edema Additional comments: swelling right arm + warm pulses + - Back Exam Back Exam: absent: CVA tenderness (L), CVA tenderness (R) - Neurological Exam Neurological Exam: Alert, Awake, CN II-XII Intact, Oriented x3 - Psychiatric Exam Psychiatric exam: Depressed - Skin Skin Exam: Dry Assessment and Plan - Assessment and Plan (Free Text) Assessment: 48 y/o male with PMH of heroin abuse presents to the ED for detox and c/o a right arm abscess x 2 days. States he has developed worsening pain and swelling to his medial right dorsal forearm, with associated central fluctuant mass. Last heroin use yesterday, 20 bags IV. IV antibiotics in progress s/p I and D await cultures
[2018-12-26] MEDS ORDERED: Tetanus/Diphtheria Toxoids 0.5 ml Syringe IM ONE (20:06)
[2018-12-26] MEDS: Sodium Chloride 0.9% 1,000 ML IV SCH ×2 (22:22→23:05)
--- NOTE | 2018-12-27 01:06 | OP ---
PROCEDURE DATE: 12/26/2018 PREOPERATIVE DIAGNOSIS: Infected mass of the right arm with abscess. POSTOPERATIVE DIAGNOSIS: Infected mass of the right arm with abscess. PROCEDURE PERFORMED: Wide deep excision of the infected mass of the right arm with drainage of underlying abscess. SURGEON: Grady Grimes MD ANESTHESIA: General endotracheal. ESTIMATED BLOOD LOSS: 30 mL. POSTOPERATIVE CONDITION: Stable. INDICATIONS FOR SURGERY: This is a 48-year-old female with an infected mass of her right arm, who will now undergo removal of a necrotic mass of the arm with underlying abscess. DESCRIPTION OF PROCEDURE: The patient was taken to the operating room, general anesthesia administered. The right arm, forearm and elbow were prepped and draped. An incision was made and the mass about the elbow elliptically excising the complete necrotic mass down to the abscess cavity. Bleeding was controlled using a Bovie. A large blood vessel was mobilized and repaired with Prolene. Wound was irrigated with copious amounts of saline solution. Full-thickness tissue flaps were raised. Counter incision was made and a partial advancement flap closure was performed, totaling 20 cm2. Central portion of wound was packed open with wet saline gauze. The patient tolerated procedure well and returned to recovery room in stable condition. Grady Grimes MD
[2018-12-27] MEDS: Vancomycin 1 gm/NS 200 ml 1 GM/200 ML BAG IVPB SCH ×2 (07:35→18:04)
[2018-12-27] MEDS: Enoxaparin 40 mg Syringe SC SCH (09:04)
[2018-12-27] MEDS: Buprenorphine Hydrochloride 8 mg SL SCH ×3 (09:04→18:03)
--- NOTE | 2018-12-27 09:40 | CP.PCM.PN ---
Subjective - Date & Time of Evaluation Date of Evaluation: 12/27/18 Time of Evaluation: 09:40 - Subjective Subjective: Progress note dictated #[id number] Objective - Vital Signs/Intake and Output Vital Signs (last 24 hours): Temp Pulse Resp BP Pulse Ox 97.9 F 58 L 20 127/68 100 12/27/18 07:00 12/27/18 07:00 12/27/18 07:00 12/27/18 07:00 12/27/18 07:00 Intake and Output: 12/27/18 12/27/18 06:59 18:59 Intake Total 1120 Balance 1120 - Medications Medications: Current Medications Buprenorphine HCl (Subutex) 8 mg SL TID [facility] Last Admin: 12/27/18 09:04 Dose: 8 mg Enoxaparin Sodium (Lovenox) 40 mg SC DAILY [facility] Last Admin: 12/27/18 09:04 Dose: 40 mg Sodium Chloride (Sodium Chloride 0.9%) 1,000 mls @ 100 mls/hr IV .Q10H [facility] Last Admin: 12/26/18 23:05 Dose: Not Given Vancomycin/Sodium Chloride (Vancomycin 1 Gm/Ns 200 Ml) 1 gm in 200 mls @ 133 mls/hr IVPB Q12H [facility]; Protocol Stop: 12/31/18 07:01 Last Admin: 12/27/18 07:35 Dose: 133 mls/hr Cefepime HCl (Maxipime Iv 1 Gm Premix) 1 gm in 50 mls @ 100 mls/hr IVPB Q12H [facility]; Protocol Last Admin: 12/26/18 22:25 Dose: 100 mls/hr Lactated Ringer's (Lactated Ringer's) 1,000 mls @ 100 mls/hr IV .Q10H [facility] Nicotine (Nicoderm Cq) 1 patch TD DAILY [facility] Last Admin: 12/27/18 09:04 Dose: 1 patch Trazodone HCl (Desyrel) 50 mg PO HS [facility] Last Admin: 12/26/18 22:25 Dose: 50 mg - Labs Labs: 12/25/18 15:59 12/25/18 15:59 PT 13.9 SECONDS (9.7-12.2) H 12/25/18 15:59 INR 1.3 12/25/18 15:59 APTT 28 SECONDS (21-34) 12/25/18 15:59
[2018-12-27] MEDS: Cefepime IV 1 gm in Dextrose 1 GM/50 ML BAG IVPB SCH ×2 (11:41→22:24)
--- NOTE | 2018-12-27 12:09 | PCM.PYCHPN ---
Psychiatric Progress Note - Psychiatric Progress Note Patient seen today, length of contact: 15 min Patient Chief Complaint: "I can't sleep well" Problems Identified/Issues Discussed: The pt is seen, chart reviewed, case discussed with staff. Support and psychoeducation given Pt is improving slowly and needs more time, still has ongoing symptoms. No SEs from medications, risks discussed. After care discussed Seroquel will be added for insomnia Psych will sign off He will return to his suboxone docotr NO NEED FOR A SUB RX ON DISCHARGE! He got one this month Medication Change: No Medical Record Reviewed: Yes Mental Status Examination - Cognitive Function Orientation: Person, Place, Situation, Time Memory: Intact Attention: WNL Concentration: Poor Association: WNL Fund of Knowledge: WNL - Mood Mood: Anxious - Affect Affect: Constricted - Speech Speech: Appropriate - Formal Thought Process Formal Thought Process: No Impairment - Suicidal Ideation Suicidal Ideation: No - Homicidal Ideation Homicidal Ideation: No Goal/Treatment Plan - Goal/Treatment Plan Progress Toward Problem(s) and Goals/Treatment Plan: Subutex 8 mg TID Support and psychoed Return to sbx doctor but consider other options too, incl/. vivitrol, methadone maint. Seroquel for insomnia Psych will sign off No suboxone, subutex Rx is needed on d/c
[2018-12-27 14:24] LABS: BASO % 0.8 % (0.0-2.0); EOS # 0.1 K/uL (0.0-0.7); EOS % 2.6 % (0.0-4.0); HEMOGLOBIN 12.9 g/dL (12.0-18.0); LYMPH # 0.9 K/uL (1.0-4.3); MEAN CELL VOLUME 84.1 fL (80.0-94.0); MEAN CORPUSCULAR HEMOGLOBIN 26.3 pg (27.0-31.0); MEAN CORPUSCULAR HGB CONC 31.3 g/dL (33.0-37.0); MEAN PLATELET VOLUME 8.8 fL (7.2-11.7); MONO # 0.3 K/uL (0.0-0.8); MONO % 6.1 % (0.0-10.0); NEUT # 3.4 K/uL (1.8-7.0); NEUT % 72.5 % (50.0-75.0); NRBC % 0.1 % (0.0-2.0); RBC 4.91 Mil/uL (4.40-5.90); RED CELL DISTRIBUTION WIDTH 15.5 % (11.5-14.5); WHITE BLOOD COUNT 4.7 K/uL (4.8-10.8)
[2018-12-27 14:40] LABS: VANCOMYCIN TROUGH 17.9 ug/mL (5.0-10.0)
[2018-12-27 15:01] LABS: ALB/GLOB RATIO 0.9 (1.0-2.1); ALBUMIN 3.6 g/dL (3.5-5.0); ALT/SGPT 11 U/L (21-72); AST/SGOT 19 U/L (17-59); BLOOD UREA NITROGEN 9 mg/dL (9-20); CALCIUM 8.5 mg/dl (8.6-10.4); GFR NON-AFRICAN AMERICAN > 60
[2018-12-27] MEDS ORDERED: Lidocaine Hydrochloride 10 ML INJ ONE (15:05)
[2018-12-27] MEDS ORDERED: Bupivacaine 0.25% 20 ML INJ IJ ONE (15:05)
[2018-12-27 15:06] LABS: HEPATITIS B SURFACE AG Negative (NEGATIVE)
[2018-12-27 15:11] LABS: HEPATITIS A IGM NEGATIVE (NEGATIVE); HEPATITIS B CORE AB NEGATIVE (NEGATIVE)
[2018-12-27 15:15] LABS: HIV 1&2 ANTIBODY NEGATIVE (NEGATIVE)
[2018-12-27 15:23] LABS: HEPATITIS C ANTIBODY NEGATIVE (NEGATIVE)
[2018-12-27] MEDS: Sodium Chloride 0.9% 1,000 ML IV SCH ×2 (17:23→21:37)
--- NOTE | 2018-12-27 17:25 | CP.PCM.PN ---
Subjective - Date & Time of Evaluation Date of Evaluation: 12/27/18 Time of Evaluation: 09:00 - Subjective Subjective: afeb less swelling pain + cont rx Objective - Vital Signs/Intake and Output Vital Signs (last 24 hours): Temp Pulse Resp BP Pulse Ox 98 F 62 20 151/80 H 100 12/27/18 15:56 12/27/18 15:56 12/27/18 15:56 12/27/18 15:56 12/27/18 15:56 Intake and Output: 12/27/18 12/27/18 06:59 18:59 Intake Total 1120 6 Balance 1120 6 - Medications Medications: Current Medications Buprenorphine HCl (Subutex) 8 mg SL TID [facility] Last Admin: 12/27/18 14:08 Dose: 8 mg Enoxaparin Sodium (Lovenox) 40 mg SC DAILY [facility] Last Admin: 12/27/18 09:04 Dose: 40 mg Sodium Chloride (Sodium Chloride 0.9%) 1,000 mls @ 100 mls/hr IV .Q10H [facility] Last Admin: 12/27/18 17:23 Dose: 100 mls/hr Vancomycin/Sodium Chloride (Vancomycin 1 Gm/Ns 200 Ml) 1 gm in 200 mls @ 133 mls/hr IVPB Q12H [facility]; Protocol Stop: 12/31/18 07:01 Last Admin: 12/27/18 07:35 Dose: 133 mls/hr Cefepime HCl (Maxipime Iv 1 Gm Premix) 1 gm in 50 mls @ 100 mls/hr IVPB Q12H [facility]; Protocol Last Admin: 12/27/18 11:41 Dose: 100 mls/hr Lactated Ringer's (Lactated Ringer's) 1,000 mls @ 100 mls/hr IV .Q10H [facility] Nicotine (Nicoderm Cq) 1 patch TD DAILY [facility] Last Admin: 12/27/18 09:04 Dose: 1 patch Quetiapine Fumarate (Seroquel) 100 mg PO HS [facility] Tramadol HCl (Ultram) 100 mg PO Q6 PRN PRN Reason: pain Last Admin: 12/27/18 16:35 Dose: 100 mg - Labs Labs: 12/27/18 14:02 12/27/18 14:02 PT 13.9 SECONDS (9.7-12.2) H 12/25/18 15:59 INR 1.3 12/25/18 15:59 APTT 28 SECONDS (21-34) 12/25/18 15:59 - Constitutional Appears: Well - Head Exam Head Exam: ATRAUMATIC, NORMAL INSPECTION, NORMOCEPHALIC - Eye Exam Eye Exam: EOMI, Normal appearance, PERRL Pupil Exam: NORMAL ACCOMODATION, PERRL - ENT Exam ENT Exam: Mucous Membranes Moist, Normal Exam - Neck Exam Neck Exam: Full ROM, Normal Inspection. absent: Lymphadenopathy - Respiratory Exam Respiratory Exam: Clear to Ausculation Bilateral, NORMAL BREATHING PATTERN - Cardiovascular Exam Cardiovascular Exam: REGULAR RHYTHM, +S1, +S2. absent: Murmur - GI/Abdominal Exam GI & Abdominal Exam: Soft, Normal Bowel Sounds. absent: Tenderness - Rectal Exam Rectal Exam: Deferred - Exam Exam: NORMAL INSPECTION - Extremities Exam Extremities Exam: Full ROM, Normal Capillary Refill, Normal Inspection. absent: Joint Swelling, Pedal Edema - Back Exam Back Exam: NORMAL INSPECTION - Neurological Exam Neurological Exam: Alert, Awake, CN II-XII Intact, Normal Gait, Oriented x3 - Psychiatric Exam Psychiatric exam: Normal Affect, Normal Mood - Skin Skin Exam: Dry, Intact, Warm Assessment and Plan - Assessment and Plan (Free Text) Assessment: cont rx cellulitis possible po rx upon discharge
--- NOTE | 2018-12-27 23:44 | PN ---
DATE: 12/27/2018 SUBJECTIVE: The patient is seen and examined at bedside. The patient underwent I and D yesterday complaining of right upper extremity pain, slightly better than yesterday. Denies any other new complaints. PHYSICAL EXAMINATION: GENERAL: Middle-aged male, lying in bed, in no acute distress. VITAL SIGNS: Blood pressure 127/68, pulse 58, respirations 20, temperature 97.9 degrees Fahrenheit, O2 saturation is 100% on room air. HEENT: Pupils equal, round, and reacting to light and accommodation. Extraocular muscles intact. No icterus. No pallor. No oral thrush. No pharyngeal congestion. NECK: Supple. No JVD. LUNGS: Bilateral vesicular breath sounds. No wheezing. No rhonchi. CARDIOVASCULAR SYSTEM: S1, S2 present. Regular. ABDOMEN: Soft, nontender. Bowel sounds present. No guarding, no rigidity. No rebound tenderness noted. CENTRAL NERVOUS SYSTEM: Alert, awake, oriented x3. No focal deficits noted. EXTREMITIES: Right upper extremity with dressing in place, status post I and D. MEDICATIONS: Include Subutex 8 mg sublingual t.i.d., Maxipime 1 g IV every 12 hours, Lovenox 40 mg subcu daily, Ringer's lactate 100 mL per hour, nicotine patch, Seroquel 100 mg p.o. at bedtime, tramadol 100 mg p.o. every 6 hours p.r.n., vancomycin 1 g IV every 12 hours. LABORATORY DATA: Labs from this morning: WBC 4.7, hemoglobin 12.9, hematocrit 41.3, platelets 133. Sodium 137, potassium 4.2, chloride 104, bicarb 27, BUN 9, creatinine 0.6, glucose 100, calcium 8.5. AST 19, ALT 11, alkaline phosphatase 114, total protein 7.5, albumin 3.6. HIV negative. Hepatitis serology negative. Vancomycin trough 17.9. Wound culture negative so far. Blood cultures negative so far. ASSESSMENT AND PLAN: Middle-aged male with history of bipolar disorder, polysubstance abuse, intravenous drug abuse, chronic obstructive pulmonary disease, asthma, admitted for drug detox, found to have right upper abscess with cellulitic changes, underwent incision and drainage by Surgery yesterday for repeat closure of the wound today. Continue with current intravenous antibiotics. Follow up with Infectious Disease regarding outpatient antibiotics as cleared by Surgery and Psychiatry. We will plan discharging the patient home in a.m. to be followed up as outpatient for drug detox. Lorena Awad MD
--- NOTE | 2018-12-28 00:15 | OP ---
PROCEDURE DATE: 12/27/2018 PREOPERATIVE DIAGNOSIS: Large open wound abscesses of the right forearm and elbow. POSTOPERATIVE DIAGNOSIS: Large open wound abscesses of the right forearm and elbow. PROCEDURE PERFORMED: Re-drainage, debridement, partial tissue flap closure and pulse irrigation, wound of the right elbow. SURGEON: Grady Grimes MD ANESTHESIA: General. BLOOD LOSS: 30 mL. POSTOPERATIVE CONDITION: Stable. INDICATIONS FOR SURGERY: This is a staged procedure. Taken back to the operating room with a large wound of the right elbow who will now undergo a change of packing under anesthesia and debridement. DESCRIPTION OF PROCEDURE: The patient was taken to the operating room. General anesthesia was administered. The right arm and elbow were prepped and draped. The packing was removed. There was a fair amount of bleeding from the wound after the packing was removed. This was immediately addressed. A bleeding branch of the brachial artery was identified, mobilized and repaired with Prolene, and blood flow confirmed by Doppler. The wound was then aggressively debrided. Any further necrotic tissue and any remaining collections were drained and cultured. Any remaining bleeding was controlled using the Bovie. Advancement flaps were raised at the periphery. A 32 sq cm advancement flap closure was performed by mobilizing full-thickness flaps, making counterincisions and using multiple layers of Monocryl. The central portion of the wound was packed open with wet saline gauze. The patient tolerated the procedure well and returned to recovery room in stable condition. Grady Grimes MD
[2018-12-28] MEDS: Vancomycin 1 gm/NS 200 ml 1 GM/200 ML BAG IVPB SCH (08:13)
[2018-12-28 08:25] VITALS: TEMP 97.2
[2018-12-28] MEDS ORDERED: Propofol 10 mg/ml Inj (20 ML) ONE (10:01)
[2018-12-28] MEDS: Enoxaparin 40 mg Syringe SC SCH (10:17)
[2018-12-28] MEDS: Buprenorphine Hydrochloride 8 mg SL SCH ×2 (10:17→12:30)
[2018-12-28] MEDS ORDERED: Bacitracin Ointment 30 GM TUBE ONE (10:29)
[2018-12-28] MEDS: HYDROmorphone 0.5 mg/0.5 ml ISec IVP PRN ×5 (10:42→11:15)
[2018-12-28] MEDS ORDERED: Lactated Ringer's 1,000 ML IV ONE (11:30)
[2018-12-28 12:35] VITALS: BP 129/82; PULSE 50; RESP 12; O2SAT 98
--- NOTE | 2018-12-28 20:56 | OP ---
PROCEDURE DATE: 12/28/2018 PREOPERATIVE DIAGNOSIS: Large open wound of the right forearm, status post debridement and drainage of the large abscess. POSTOPERATIVE DIAGNOSIS: Large open wound of the right forearm, status post debridement and drainage of the large abscess. PROCEDURE PERFORMED: Debridement and advancement flap closure of right elbow. SURGEON: Grady Grimes MD ANESTHESIA: General endotracheal. ESTIMATED BLOOD LOSS: 30 mL. POSTOPERATIVE CONDITION: Stable. INDICATIONS FOR SURGERY: This is a 48-year-old male with a history of IV drug abuse, presented with a large necrotic abscess of the right elbow and forearm. He was taken initially to the operating room, underwent drainage and taken back for debridement and change of packing. Today, he is taken back in a staged procedure for debridement and closure of the wound. DESCRIPTION OF PROCEDURE: The patient was taken to the operating room. General anesthesia was administered. The right elbow and forearm were prepped and draped. The wound was again aggressively debrided. Any remaining collections were drained and cultured. Bleeding was controlled using the Bovie and a bleeding branch of the brachial artery was mobilized and repaired with Prolene, and blood flow was confirmed by Doppler. Large tissue flaps were raised full-thickness including muscle and fascia. Counterincisions were made and a 32 sq cm advancement flap closure was performed with heavy Monocryl and skin clips. The patient tolerated the procedure well and returned to recovery room in stable condition. Grady Grimes MD
--- NOTE | 2018-12-29 20:53 | DS ---
DISCHARGE DIAGNOSES: Right upper extremity cellulitis with abscess. Status post I and D and re-closure of the wound, IVDA with polysubstance abuse including cocaine, heroin, bipolar disorder, COPD, asthma, possible right upper extremity foreign body. HISTORY OF PRESENT ILLNESS: Mr. Pizano is a 48-year-old male with past medical history of bipolar disorder, asthma, drug abuse, who had prior admissions to psych floor for bipolar disorder. Admitted to the hospital, who came into the ED requesting for detox and found to be having right upper extremity abscess and cellulitic changes. This morning, the patient was feeling better. Denied any complaints, underwent procedure. PHYSICAL EXAMINATION: GENERAL: Middle-aged male, sitting in chair, in no acute distress. VITAL SIGNS: Blood pressure 129/82, pulse 53, respirations 12, temperature 97.2 degrees Fahrenheit, O2 sat 98% on room air. HEENT: Pupils equal, round and reacting to light and accommodation. Extraocular muscles intact. No icterus no pallor. No oral thrush, no pharyngeal congestion. NECK: Supple. No JVD. LUNGS: Bilateral vesicular breath sounds. No wheezing. No rhonchi. CVS: S1, S2 present. Regular. ABDOMEN: Soft, nontender. Bowel sounds present. No guarding. No rigidity. No rebound tenderness noted. 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 No focal deficits noted. EXTREMITIES: No edema. Possible peripheral pulses. Right upper extremity with dressing in place. LABORATORY DATA: Labs done from 12/27/2018, WBC 4.7, hemoglobin 12.9, hematocrit 41.3, platelets 133. Sodium 137, potassium 4.2, chloride 104, bicarb 27, BUN 9, creatinine 0.6, glucose 100, calcium 8.5. LFTs within normal limits. Hepatitis serology negative. HIV negative. Urine drug screen positive for opiates, cocaine, and cannabinoids. Alcohol negative. Wound culture growing gram-negative rods. HOSPITAL COURSE: The patient was admitted to the hospital for right upper extremity abscess and cellulitis. The patient was seen by Surgery and ID. The patient was started on IV antibiotics. The patient was also evaluated by Psychiatry for drug detox. The patient underwent I and D yesterday and closure this morning, and the patient wanted to sign out against medical advice. The patient was explained the risk of going home against medical advice and advised the patient to get the IV antibiotics in the hospital. The patient understands the consequences of going home against medical advice. The patient is alert, awake, oriented x3 and hemodynamically stable. The patient was discharged home against medical advice and advised the patient to come to the emergency room if any recurrent symptoms. Advised the patient to follow up with Surgery and PMD as outpatient. Lorena Awad MD
== END 2018-12-28 14:01 | disposition left against medical advice (07) | DRG 574 ==
LOC: C.ER 13:52 → C.9E 17:58 → C.6T 12-26 07:02
PROVIDERS: ADMIT Internal Medicine; ATTEND Internal Medicine
PROC: 0J9G0ZZ Drainage of Right Lower Arm Subcutaneous Tissue and Fascia, Open Approach (ICD-10-PCS; 2018-12-26)
PROC: 0JBG0ZZ Excision of Right Lower Arm Subcutaneous Tissue and Fascia, Open Approach (ICD-10-PCS; principal; 2018-12-26 17:30)
PROC: 0HXDXZZ Transfer Right Lower Arm Skin, External Approach (ICD-10-PCS; 2018-12-27)
PROC: 0J9G0ZZ Drainage of Right Lower Arm Subcutaneous Tissue and Fascia, Open Approach (ICD-10-PCS; 2018-12-27)
PROC: 0JBG0ZZ Excision of Right Lower Arm Subcutaneous Tissue and Fascia, Open Approach (ICD-10-PCS; 2018-12-27)
PROC: 0JBG0ZZ Excision of Right Lower Arm Subcutaneous Tissue and Fascia, Open Approach (ICD-10-PCS; 2018-12-28)
PROC: 0JBG0ZZ Excision of Right Lower Arm Subcutaneous Tissue and Fascia, Open Approach (ICD-10-PCS; 2018-12-28)
PROC: 0JXG0ZC Transfer Right Lower Arm Subcutaneous Tissue and Fascia with Skin, Subcutaneous Tissue and Fascia, Open Approach (ICD-10-PCS; 2018-12-28)
DX: L02.413 Cutaneous abscess of right upper limb (principal); F11.23 Opioid dependence with withdrawal; L03.113 Cellulitis of right upper limb; F14.90 Cocaine use, unspecified, uncomplicated; B95.2 Enterococcus as the cause of diseases classified elsewhere; F20.9 Schizophrenia, unspecified; F31.9 Bipolar disorder, unspecified; M79.5 Residual foreign body in soft tissue; J43.9 Emphysema, unspecified; Z96.642 Presence of left artificial hip joint; F17.210 Nicotine dependence, cigarettes, uncomplicated; G47.00 Insomnia, unspecified